=== PATIENT | male | born 1950 | race Caucasian/White ===

== ENCOUNTER 2016-12-17 09:15 | Inpatient (IN) | payer OTHER, MEDICARE, BC ==
[2016-12-17] MEDS ORDERED: Sodium Chloride 0.9% 10 ML Syringe FLUSH PRN (09:43)
[2016-12-17 10:16] LABS: CHLORIDE,CL 103 mEq/L (98-106); SODIUM,NA 142 mEq/L (136-145)
[2016-12-17] MEDS ORDERED: Acetaminophen 650 MG Supp ONE (10:20)
[2016-12-17] MEDS ORDERED: Temazepam 15 MG Cap PO PRN (11:24)
[2016-12-17] MEDS ORDERED: Lactated Ringers 1,000 ML IV SCH ×2 (11:30)
[2016-12-17] MEDS: Levofloxacin/Dextrose 5%-Water 500 MG in Premix Bag 1 BAG IV SCH (12:09)
--- NOTE | 2016-12-17 12:13 | EDM.PDOC ---
ED HISTORY OF PRESENT ILLNESS - General Chief Complaint: Respiratory Problem Stated Complaint: SENIOR CARE POSSIBLE PNEUMONIA Time Seen by Provider: 12/17/16 09:20 Source of Information: Reports: alf records History Limitations: Reports: Altered mental status, Physical impairment - History of Present Illness INITIAL COMMENTS - FREE TEXT/NARRATIVE: Danny is a 66 yo male who is brought into the ER via [facility] from the [facility] [place] [place]. Danny has been running a fever and having difficulty breathing. Nursing staff state he had rhonci in his lungs and O2 saturation of 85% Resident's family members recently switched his code level to a level one and want him evaluated for pneumonia. Patient is a quadriplegic and unable to communicate. - Related Data Allergies/ADRs: Allergies Allergy/AdvReac Type Severity Reaction Status Date / Time No Known Allergies Allergy Verified 12/17/16 11:03 Home Meds: Home Meds Acetaminophen 650 mg PO BID 12/17/16 [History] Amino Ac/Protein Hydr/Whey Pro [Liquacel Liquid Protein Packet] 1 packet PO DAILY 12/17/16 [History] Baclofen 15 mg PO TID 12/17/16 [History] Bisacodyl [Dulcolax] 5 mg PO DAILY PRN 12/17/16 [History] Bisacodyl [Dulcolax] 10 mg RECTAL DAILY PRN 12/17/16 [History] Calcium Carbonate/Vitamin D3 [Caltrate 600 Plus D3 Tablet] 1 each PO DAILY 12/17 [History] Diazepam [Valium] 2 mg PO TID 12/17/16 [History] Diazepam [Valium] 10 mg PO BEDTIME 12/17/16 [History] Furosemide [Lasix] 20 mg PO DAILY 12/17/16 [History] Levothyroxine [Synthroid] 50 mcg PO DAILY 12/17/16 [History] Loratadine 10 mg PO BEDTIME 12/17/16 [History] Magnesium 250 mg PO DAILY 12/17/16 [History] Mineral Oil/Petrolatum,White [Lubrifresh Pm Eye Ointment] 1 applic EYEBOTH DAILY 12/17/16 [History] Multivitamin [Daily Sophia] 1 each PO DAILY 12/17/16 [History] Sennosides/Docusate Sodium [Senna-Docusate Sodium] 1 each PO DAILY 12/17/16 [ History] Past Medical History Other HEENT History: eye senstivity. Other Gastrointestinal History: abdomen distended and tympanic. Other Genitourinary History: Patient incontinent of urine. Other Musculoskeletal History: Patient is quadraplegic. Social & Family History - Tobacco Use Smoking Status *Q: Never Smoker ED ROS GENERAL - Review of Systems Review Of Systems: Unable To Obtain ED EXAM, GENERAL - Physical Exam Exam: See Below Exam Limited By: Physical impairment General Appearance: alert, moderate distress Nose: normal inspection, normal mucosa, no blood Throat/Mouth: Normal inspection, Normal lips, Normal oropharynx, No airway compromise Head: atraumatic, normocephalic Neck: normal inspection, supple, non-tender Respiratory/Chest: no respiratory distress, no accessory muscle use, decreased breath sounds, rhonchi Cardiovascular: regular rate, rhythm, no murmur GI/Abdominal: normal bowel sounds, no abnormal bruit, no mass, distended Extremities: no pedal edema, normal capillary refill Psychiatric: normal affect, normal mood Skin Exam: Normal color, No rash, Increased warmth Course - Vital Signs Last Recorded V/S: Last Vital Signs Temp 98.2 F 12/17/16 11:15 Pulse 90 12/17/16 11:15 Resp 18 12/17/16 11:15 BP 120/94 H 12/17/16 11:15 Pulse Ox 96 12/17/16 11:15 - Orders/Labs/Meds Orders: Active Orders 24 hr Category Date Time Status Patient Status [ADT] Routine ADT 12/17/16 11:24 Active Cardiac Monitoring [RC] CONTINUOUS Care 12/17/16 11:24 Active Oxygen Therapy [RC] PRN Care 12/17/16 11:24 Active VTE/DVT Education [RC] PER UNIT ROUTINE Care 12/17/16 11:24 Active Vital Signs [RC] Q4H Care 12/17/16 11:24 Active Respiratory Care Assess and Treatment [CONS] Routine Cons 12/17/16 11:24 Active Full Liquid Diet [DIET] Diet 12/17/16 Lunch Active CXR [Chest 1V Frontal] [CR] Stat Exams 12/17/16 09:42 Taken BASIC METABOLIC PANEL,BMP [CHEM] AM Lab 12/18/16 05:11 Ordered BASIC METABOLIC PANEL,BMP [CHEM] AM Lab 12/19/16 05:11 Ordered BASIC METABOLIC PANEL,BMP [CHEM] AM Lab 12/20/16 05:11 Ordered C-REACTIVE PROTEIN [CHEM] AM Lab 12/18/16 05:11 Ordered C-REACTIVE PROTEIN [CHEM] AM Lab 12/19/16 05:11 Ordered C-REACTIVE PROTEIN [CHEM] AM Lab 12/20/16 05:11 Ordered CBC WITH AUTO DIFF [HEME] AM Lab 12/18/16 05:11 Ordered CBC WITH AUTO DIFF [HEME] AM Lab 12/19/16 05:11 Ordered CBC WITH AUTO DIFF [HEME] AM Lab 12/20/16 05:11 Ordered CULTURE BLOOD [BC] Stat Lab 12/17/16 09:45 Received CULTURE BLOOD [BC] Stat Lab 12/17/16 09:50 Received CULTURE SPUTUM + SMEAR [RM] Stat Lab 12/17/16 09:39 Uncollected Acetaminophen [Tylenol] Med 12/17/16 09:45 Active 650 mg RECTAL Q4H PRN Enoxaparin [Lovenox] Med 12/17/16 08:00 Active 40 mg SUBCUT Q24H Levofloxacin/Dextrose 5%-Water [Levaquin in D5W 500 MG/ Med 12/17/16 08:00 Active 100 ML] 500 mg Premix Bag 1 bag IV Q24H Sodium Chloride 0.9% [Saline Flush] Med 12/17/16 09:43 Active 10 ml FLUSH ASDIRECTED PRN Temazepam [Restoril] Med 12/17/16 11:24 Active 15 mg PO BEDTIME PRN methylPREDNISolone Sod Succ [Solu-MEDROL] Med 12/17/16 08:00 Active 62.5 mg IVPUSH Q12H Blood Culture x2 Reflex Set [OM.PC] Stat Oth 12/17/16 09:41 Ordered Saline Lock Insert [OM.PC] Routine Oth 12/17/16 09:43 Ordered Resuscitation Status Routine Resus Stat 12/17/16 10:45 Ordered Medication Orders Acetaminophen (Tylenol) 650 mg RECTAL Q4H PRN PRN Reason: Fever Enoxaparin Sodium (Lovenox) 40 mg SUBCUT Q24H THAI Levofloxacin/Dextrose 500 mg/ (Premix) 100 mls @ 100 mls/hr IV Q24H THAI Potassium Chloride 40 meq/ (Premix) 100 mls @ 12.5 mls/hr IV ASDIRECTED THAI Lactated Ringer's (Ringers, Lactated) 1,000 mls @ 125 mls/hr IV ASDIRECTED THAI Methylprednisolone Sodium Succinate (Solu-Medrol) 62.5 mg IVPUSH Q12H THAI Sodium Chloride (Saline Flush) 10 ml FLUSH ASDIRECTED PRN PRN Reason: Keep Vein Open Temazepam (Restoril) 15 mg PO BEDTIME PRN PRN Reason: Sleep Labs: Laboratory Tests 12/17/16 12/17/16 Range/Units 09:45 09:45 WBC 19.2 H (5.0-10.0) 10^3/uL RBC 5.06 (4.50-6.00) 10^6/uL Hgb 15.8 (14.0-18.0) g/dL Hct 47.5 (40.0-54.0) % MCV 93.9 (82.0-94.0) fL MCH 31.2 (27.0-32.0) pg MCHC 33.3 (33.0-38.0) g/dL RDW Coeff of Constantino 13.5 (11.0-15.0) % Plt Count 303 (150-400) 10^3/uL Neut % (Auto) 86.5 H (35-85) % Lymph % (Auto) 6.0 L (10-55) % Jenkins % (Auto) 7.1 (0-16) % Eos % (Auto) 0.3 (0-5) % Baso % (Auto) 0.1 (0-3) % Neut # 16.63 H (1.80-7.00) 10^3/uL Lymph # 1.15 (1.00-4.80) 10^3/uL Jenkins # 1.36 H (0.00-0.80) 10^3/uL Eos # 0.05 (0.00-0.45) 10^3/uL Baso # 0.01 10^3/uL Sodium 142 (136-145) mEq/L Potassium 2.7 L* D (3.5-5.0) mEq/L Chloride 103 (98-106) mEq/L Carbon Dioxide 28 (21-32) mmol/L BUN 15 (7-18) mg/dL Creatinine 0.5 L (0.7-1.3) mg/dL Est Cr Clr Drug Dosing TNP Estimated GFR (MDRD) > 60 (>=60) mL/min Glucose 126 H D (75-99) mg/dL Calcium 8.4 (8.4-10.1) mg/dL Total Bilirubin 0.8 (0.0-1.0) mg/dL AST 11 L (15-37) U/L ALT 19 (12-78) U/L Alkaline Phosphatase 92 (46-116) U/L C-Reactive Protein 2.9 H (0.2-0.8) mg/dL Total Protein 7.7 (6.4-8.2) g/dL Albumin 3.7 (3.4-5.0) g/dL TSH, Ultra Sensitive 1.58 (0.36-5.60) uIU/mL Meds: Medications Generic Name Dose Route Start Last Admin Trade Name Freq PRN Reason Stop Dose Admin Acetaminophen 650 mg 12/17/16 09:45 Tylenol RECTAL Q4H PRN Fever Enoxaparin Sodium 40 mg 12/17/16 08:00 Lovenox SUBCUT Q24H THAI Levofloxacin/Dextrose 500 mg/ 100 mls @ 100 mls/hr 12/17/16 08:00 Premix IV Q24H THAI Potassium Chloride 40 meq/ 100 mls @ 12.5 mls/hr 12/17/16 11:30 Premix IV ASDIRECTED THAI Lactated Ringer's 1,000 mls @ 125 mls/hr 12/17/16 11:30 Ringers, Lactated IV ASDIRECTED THAI Methylprednisolone Sodium Succinate 62.5 mg 12/17/16 08:00 Solu-Medrol IVPUSH Q12H THAI Sodium Chloride 10 ml 12/17/16 09:43 Saline Flush FLUSH ASDIRECTED PRN Keep Vein Open Temazepam 15 mg 12/17/16 11:24 Restoril PO BEDTIME PRN Sleep Discontinued Medications Generic Name Dose Route Start Last Admin Trade Name Freq PRN Reason Stop Dose Admin Acetaminophen Confirm 12/17/16 10:20 Tylenol Administered 12/17/16 10:21 Dose 650 mg .ROUTE .STK-MED ONE Departure - Departure Time of Disposition: 10:15 Disposition: Admitted As Inpatient 66 Condition: undetermined Clinical Impression: Hypokalemia Pneumonia Qualifiers: Pneumonia type: due to unspecified organism Laterality: bilateral Lung location : unspecified part of lung Qualified Code(s): J18.9 - Pneumonia, unspecified organism - Problem List & Annotations (1) Pneumonia SNOMED Code(s): 168477526 Code(s): J18.9 - PNEUMONIA, UNSPECIFIED ORGANISM Status: Acute Current Visit: Yes Qualifiers: Pneumonia type: due to unspecified organism Laterality: bilateral Lung location: unspecified part of lung Qualified Code(s): J18.9 - Pneumonia, unspecified organism (2) Hypokalemia SNOMED Code(s): 74350071 Code(s): E87.6 - HYPOKALEMIA Status: Acute Current Visit: Yes - Problem List Review Problem List Initiated/Reviewed/Updated: Yes - My Orders Last 24 Hours: My Active Orders 12/17/16 08:00 Enoxaparin [Lovenox] 40 mg SUBCUT Q24H Levofloxacin/Dextrose 5%-Water [Levaquin in D5W 500 MG/100 ML] 500 mg Premix Bag 1 bag IV Q24H methylPREDNISolone Sod Succ [Solu-MEDROL] 62.5 mg IVPUSH Q12H 12/17/16 09:39 CULTURE SPUTUM + SMEAR [RM] Stat 12/17/16 09:41 Blood Culture x2 Reflex Set [OM.PC] Stat 12/17/16 09:42 CXR [Chest 1V Frontal] [CR] Stat 12/17/16 09:43 Sodium Chloride 0.9% [Saline Flush] 10 ml FLUSH ASDIRECTED PRN Saline Lock Insert [OM.PC] Routine 12/17/16 09:45 CULTURE BLOOD [BC] Stat Acetaminophen [Tylenol] 650 mg RECTAL Q4H PRN 12/17/16 09:50 CULTURE BLOOD [BC] Stat 12/17/16 10:45 Resuscitation Status Routine 12/17/16 11:24 Patient Status [ADT] Routine Cardiac Monitoring [RC] CONTINUOUS Oxygen Therapy [RC] PRN VTE/DVT Education [RC] PER UNIT ROUTINE Vital Signs [RC] Q4H Respiratory Care Assess and Treatment [CONS] Routine Temazepam [Restoril] 15 mg PO BEDTIME PRN 12/17/16 Lunch Full Liquid Diet [DIET] 12/18/16 05:11 BASIC METABOLIC PANEL,BMP [CHEM] AM C-REACTIVE PROTEIN [CHEM] AM CBC WITH AUTO DIFF [HEME] AM 12/19/16 05:11 BASIC METABOLIC PANEL,BMP [CHEM] AM C-REACTIVE PROTEIN [CHEM] AM CBC WITH AUTO DIFF [HEME] AM 12/20/16 05:11 BASIC METABOLIC PANEL,BMP [CHEM] AM C-REACTIVE PROTEIN [CHEM] AM CBC WITH AUTO DIFF [HEME] AM - Assessment/Plan Admission H&P: Please use this note as an admission H&P Last 24 Hours: My Active Orders 12/17/16 08:00 Enoxaparin [Lovenox] 40 mg SUBCUT Q24H Levofloxacin/Dextrose 5%-Water [Levaquin in D5W 500 MG/100 ML] 500 mg Premix Bag 1 bag IV Q24H methylPREDNISolone Sod Succ [Solu-MEDROL] 62.5 mg IVPUSH Q12H 12/17/16 09:39 CULTURE SPUTUM + SMEAR [RM] Stat 12/17/16 09:41 Blood Culture x2 Reflex Set [OM.PC] Stat 12/17/16 09:42 CXR [Chest 1V Frontal] [CR] Stat 12/17/16 09:43 Sodium Chloride 0.9% [Saline Flush] 10 ml FLUSH ASDIRECTED PRN Saline Lock Insert [OM.PC] Routine 12/17/16 09:45 CULTURE BLOOD [BC] Stat Acetaminophen [Tylenol] 650 mg RECTAL Q4H PRN 12/17/16 09:50 CULTURE BLOOD [BC] Stat 12/17/16 10:45 Resuscitation Status Routine 12/17/16 11:24 Patient Status [ADT] Routine Cardiac Monitoring [RC] CONTINUOUS Oxygen Therapy [RC] PRN VTE/DVT Education [RC] PER UNIT ROUTINE Vital Signs [RC] Q4H Respiratory Care Assess and Treatment [CONS] Routine Temazepam [Restoril] 15 mg PO BEDTIME PRN 12/17/16 Lunch Full Liquid Diet [DIET] 12/18/16 05:11 BASIC METABOLIC PANEL,BMP [CHEM] AM C-REACTIVE PROTEIN [CHEM] AM CBC WITH AUTO DIFF [HEME] AM 12/19/16 05:11 BASIC METABOLIC PANEL,BMP [CHEM] AM C-REACTIVE PROTEIN [CHEM] AM CBC WITH AUTO DIFF [HEME] AM 12/20/16 05:11 BASIC METABOLIC PANEL,BMP [CHEM] AM C-REACTIVE PROTEIN [CHEM] AM CBC WITH AUTO DIFF [HEME] AM Plan: Will admit to Dr. Mishra's services under acute care. Dr. Mishra consulted and agreed with admission. Will start IV antibiotics at this time. Will supplement potassium as well d/t hypokalemia. Telemetry placed secondary to electrolyte imbalance.
[2016-12-17] MEDS: Enoxaparin 40 MG/0.4 ML Syringe SUBCUT SCH (12:26)
[2016-12-17] MEDS: methylPREDNISolone Sodium Succinate 125 MG/2 ML SDV IVPUSH SCH ×2 (12:28→20:14)
[2016-12-17] MEDS: Potassium Chloride 40 MEQ in Premix Bag 1 BAG IV SCH ×2 (14:38→20:22)
[2016-12-17] MEDS: Lactated Ringers 1,000 ML IV SCH ×2 (14:40→20:22)
[2016-12-17] MEDS: Acetaminophen 650 MG Supp RECTAL PRN (17:03)
[2016-12-17] MEDS ORDERED: Bisacodyl 5 MG Tab PO PRN (18:04)
[2016-12-17] MEDS ORDERED: Bisacodyl 10 MG Supp RECTAL PRN (18:04)
[2016-12-17] MEDS: Diazepam 5 MG Tab PO SCH ×2 (20:13→20:14)
[2016-12-17] MEDS: Baclofen 10 MG Tab PO SCH (20:13)
[2016-12-17] MEDS: Acetaminophen 325 MG Tab PO SCH (20:13)
[2016-12-17] MEDS: Albuterol/Ipratropium 3.0-0.5 MG/3 ML Neb Soln NEB SCH (20:14)
[2016-12-18] MEDS: Lactated Ringers 1,000 ML IV SCH ×3 (04:56→20:00)
[2016-12-18] MEDS: Potassium Chloride 40 MEQ in Premix Bag 1 BAG IV SCH (04:57)
[2016-12-18] MEDS: Baclofen 10 MG Tab PO SCH ×3 (07:43→20:00)
[2016-12-18] MEDS: Multivitamin Tab PO SCH (07:45)
[2016-12-18] MEDS: Diazepam 5 MG Tab PO SCH ×4 (07:45→20:05)
[2016-12-18] MEDS: Furosemide 20 MG Tab PO SCH (07:46)
[2016-12-18] MEDS: Levothyroxine 50 MCG Tab PO SCH (07:46)
[2016-12-18] MEDS: Acetaminophen 325 MG Tab PO SCH ×2 (07:46→20:00)
[2016-12-18] MEDS: Enoxaparin 40 MG/0.4 ML Syringe SUBCUT SCH (07:47)
[2016-12-18] MEDS: methylPREDNISolone Sodium Succinate 125 MG/2 ML SDV IVPUSH SCH ×2 (07:47→19:59)
[2016-12-18] MEDS: AMINO AC PO SCH (07:49)
[2016-12-18] MEDS: MINERAL OIL EYEBOTH SCH (07:49)
[2016-12-18] MEDS: PETROLATUM WHITE EYEBOTH SCH (07:49)
[2016-12-18] MEDS: Levofloxacin/Dextrose 5%-Water 500 MG in Premix Bag 1 BAG IV SCH (07:49)
[2016-12-18] MEDS: PROTEIN HYDR PO SCH (07:49)
[2016-12-18] MEDS: [UNRECOGNIZED DRUG - OTHER] PO SCH (07:49)
[2016-12-18] MEDS: WHEY PRO PO SCH (07:49)
[2016-12-18] MEDS: [UNRECOGNIZED DRUG - OTHER] EYEBOTH SCH (07:49)
[2016-12-18] MEDS: Albuterol/Ipratropium 3.0-0.5 MG/3 ML Neb Soln NEB SCH ×4 (08:00→20:02)
[2016-12-18 08:44] LABS: CHLORIDE,CL 105 mEq/L (98-106); SODIUM,NA 142 mEq/L (136-145)
[2016-12-19] MEDS: Lactated Ringers 1,000 ML IV SCH ×2 (04:17→20:04)
[2016-12-19 08:18] LABS: CHLORIDE,CL 107 mEq/L (98-106); SODIUM,NA 143 mEq/L (136-145)
[2016-12-19] MEDS: Enoxaparin 40 MG/0.4 ML Syringe SUBCUT SCH (08:53)
[2016-12-19] MEDS: Levothyroxine 50 MCG Tab PO SCH (08:53)
[2016-12-19] MEDS: Baclofen 10 MG Tab PO SCH ×3 (08:54→22:06)
[2016-12-19] MEDS: Multivitamin Tab PO SCH (08:55)
[2016-12-19] MEDS: Diazepam 5 MG Tab PO SCH ×4 (08:55→22:07)
[2016-12-19] MEDS: Furosemide 20 MG Tab PO SCH (08:55)
[2016-12-19] MEDS: methylPREDNISolone Sodium Succinate 125 MG/2 ML SDV IVPUSH SCH ×2 (08:56→20:04)
[2016-12-19] MEDS: [UNRECOGNIZED DRUG - OTHER] EYEBOTH SCH (08:56)
[2016-12-19] MEDS: Acetaminophen 325 MG Tab PO SCH ×2 (08:56→22:06)
[2016-12-19] MEDS: PETROLATUM WHITE EYEBOTH SCH (08:56)
[2016-12-19] MEDS: MINERAL OIL EYEBOTH SCH (08:56)
[2016-12-19] MEDS: Levofloxacin/Dextrose 5%-Water 500 MG in Premix Bag 1 BAG IV SCH (08:57)
[2016-12-19] MEDS: Albuterol/Ipratropium 3.0-0.5 MG/3 ML Neb Soln NEB SCH ×4 (08:57→22:28)
[2016-12-19] MEDS: [UNRECOGNIZED DRUG - OTHER] PO SCH (08:57)
[2016-12-19] MEDS: PROTEIN HYDR PO SCH (08:57)
[2016-12-19] MEDS: AMINO AC PO SCH (08:57)
[2016-12-19] MEDS: WHEY PRO PO SCH (08:57)
--- NOTE | 2016-12-19 16:17 | PCM.PN ---
- General Info Date of Service: 12/19/16 Admission Dx/Problem (Free Text): Pneumonia Functional Status: Reports: tolerating diet, other (catheter intact, draining clear urine) - Review of Systems General: Reports: fever, other (unobtainable, concerns reported by nurse) HEENT: Reports: sinus congestion Pulmonary: Reports: cough. Denies: shortness of breath, wheezing Cardiovascular: Denies: edema Gastrointestinal: Reports: Other (abdominal distention) Genitourinary: Reports: other (clear yellow urine) - Patient Data Vitals - most recent: Last Vital Signs Temp 98.5 F 12/19/16 16:00 Pulse 101 H 12/19/16 16:00 Resp 20 12/19/16 16:00 BP 133/67 12/19/16 16:00 Pulse Ox 94 L 12/19/16 16:00 Weight - most recent: 154 lb I&O - last 24 hours: Intake & Output 12/19/16 12/19/16 12/19/16 06:59 14:59 22:59 Intake Total 1000 200 Output Total 200 Balance 800 200 Lab Results last 24 hrs: Laboratory Results - last 24 hr 12/19/16 12/19/16 Range/Units 05:11 05:11 WBC 11.0 H (5.0-10.0) 10^3/uL RBC 4.46 L (4.50-6.00) 10^6/uL Hgb 14.0 (14.0-18.0) g/dL Hct 42.7 (40.0-54.0) % MCV 95.7 H (82.0-94.0) fL MCH 31.4 (27.0-32.0) pg MCHC 32.8 L (33.0-38.0) g/dL RDW Coeff of Constantino 13.4 (11.0-15.0) % Plt Count 278 (150-400) 10^3/uL Neut % (Auto) 82.6 (35-85) % Lymph % (Auto) 7.5 L (10-55) % Dickenson % (Auto) 9.9 (0-16) % Eos % (Auto) 0 (0-5) % Baso % (Auto) 0 (0-3) % Neut # 9.10 H (1.80-7.00) 10^3/uL Lymph # 0.83 L (1.00-4.80) 10^3/uL Dickenson # 1.09 H (0.00-0.80) 10^3/uL Eos # 0.00 (0.00-0.45) 10^3/uL Baso # 0.00 10^3/uL Sodium 143 (136-145) mEq/L Potassium 3.3 L (3.5-5.0) mEq/L Chloride 107 H (98-106) mEq/L Carbon Dioxide 28 (21-32) mmol/L BUN 17 (7-18) mg/dL Creatinine 0.5 L (0.7-1.3) mg/dL Est Cr Clr Drug Dosing 143.59 mL/min Estimated GFR (MDRD) > 60 (>=60) mL/min Glucose 142 H (75-99) mg/dL Calcium 8.6 (8.4-10.1) mg/dL C-Reactive Protein 1.0 H (0.2-0.8) mg/dL [facility] Results last 24 hrs: Microbiology 12/17/16 11:26 Urine Culture - Final Urine, Catheterized NO GROWTH AFTER 2 DAYS Med Orders - Current: Current Medications Acetaminophen (Tylenol) 650 mg RECTAL Q4H PRN PRN Reason: Fever Last Admin: 12/17/16 17:03 Dose: 650 mg Acetaminophen (Tylenol) 650 mg PO BID [facility] Last Admin: 12/19/16 08:56 Dose: 650 mg Albuterol/Ipratropium (Duoneb 3.0-0.5 Mg/3 Ml) 3 ml NEB QIDRT [facility] Last Admin: 12/19/16 15:11 Dose: 3 ml Baclofen (Lioresal) 15 mg PO TID [facility] Last Admin: 12/19/16 08:54 Dose: 15 mg Bisacodyl (Dulcolax) 5 mg PO DAILY PRN PRN Reason: Constipation Bisacodyl (Dulcolax) 10 mg RECTAL DAILY PRN PRN Reason: Constipation Diazepam (Valium.) 2.5 mg PO TID [facility] Last Admin: 12/19/16 08:55 Dose: 2.5 mg Diazepam (Valium.) 10 mg PO BEDTIME [facility] Last Admin: 12/18/16 20:00 Dose: 10 mg Enoxaparin Sodium (Lovenox) 40 mg SUBCUT Q24H [facility] Last Admin: 12/19/16 08:53 Dose: 40 mg Furosemide (Lasix) 20 mg PO DAILY [facility] Last Admin: 12/19/16 08:55 Dose: 20 mg Levofloxacin/Dextrose 500 mg/ (Premix) 100 mls @ 100 mls/hr IV Q24H [facility] Last Admin: 12/19/16 08:57 Dose: 100 mls/hr Lactated Ringer's (Ringers, Lactated) 1,000 mls @ 50 mls/hr IV ASDIRECTED [facility] Last Admin: 12/19/16 04:17 Dose: 125 mls/hr Levothyroxine Sodium (Synthroid) 50 mcg PO DAILY [facility] Last Admin: 12/19/16 08:53 Dose: 50 mcg Magnesium Oxide (Magnesium Oxide) 250 mg PO DAILY [facility] Last Admin: 12/19/16 08:55 Dose: 250 mg Methylprednisolone Sodium Succinate (Solu-Medrol) 62.5 mg IVPUSH Q12H [facility] Last Admin: 12/19/16 08:56 Dose: 62.5 mg Multivitamins/Minerals/Vitamin C (Tab-A-Sophia) 1 tab PO DAILY [facility] Last Admin: 12/19/16 08:55 Dose: 1 tab Non-Formulary Medication (Amino Ac/Protein Hydr/Whey Pro [Liquacel Liquid Protein Packet]) 1 packet PO DAILY [facility] Last Admin: 12/19/16 08:57 Dose: Not Given Non-Formulary Medication (Mineral Oil/Petrolatum,White [Lubrifresh Pm Eye Ointment]) 1 applic EYEBOTH DAILY [facility] Last Admin: 12/19/16 08:56 Dose: 1 applic Potassium Chloride (Potassium Chloride Solution) 20 meq PO BIDMEALS [facility] Senna/Docusate Sodium (Senna Plus) 1 tab PO DAILY [facility] Last Admin: 12/19/16 08:54 Dose: 1 tab Sodium Chloride (Saline Flush) 10 ml FLUSH ASDIRECTED PRN PRN Reason: Keep Vein Open Temazepam (Restoril) 15 mg PO BEDTIME PRN PRN Reason: Sleep Discontinued Medications Acetaminophen (Tylenol) Confirm Administered Dose 650 mg .ROUTE .STK-MED ONE Stop: 12/17/16 10:21 Last Admin: 12/17/16 12:31 Dose: Not Given Potassium Chloride 40 meq/ (Premix) 100 mls @ 12.5 mls/hr IV ASDIRECTED THAI Last Admin: 12/18/16 04:57 Dose: 12.5 mls/hr - Exam Quality Assessment: urine catheter General: alert HEENT: Mucous membr. moist/pink Neck: supple Lungs: Clear to auscultation, Normal respiratory effort Cardiovascular: regular rate, regular rhythm Abdomen: distension (abdomen is taut, firm to palpation), abnormal bowel sounds Extremities: no edema, other (contractures noted, chronic) Skin: warm, dry - Problem List & Annotations (1) Ileus SNOMED Code(s): 355312048 Code(s): K56.7 - ILEUS, UNSPECIFIED Status: Acute Priority: High Current Visit: Yes (2) Pneumonia SNOMED Code(s): 787590891 Code(s): J18.9 - PNEUMONIA, UNSPECIFIED ORGANISM Status: Acute Current Visit: Yes Qualifiers: Pneumonia type: due to unspecified organism Laterality: bilateral Lung location: unspecified part of lung Qualified Code(s): J18.9 - Pneumonia, unspecified organism - Problem List Review Problem List Initiated/Reviewed/Updated: Yes - My Orders Last 24 Hours: My Active Orders 12/19/16 12:46 Abdomen 2V AP Flat Upright [CR] Routine 12/19/16 14:10 NG [Gastrointestinal Tube Mgmt] [RC] ASDIRECTED NG [Nasogastric Orogastric Tube Insertion] [OM.PC] Routine 12/19/16 17:30 Potassium Chloride [Potassium Chloride Solution] 20 meq PO BIDMEALS - Assessment Assessment:: Pneumonia Ileus - Plan Plan:: Nurse reports significant abdominal distention. Has had a small loose stool today. Was turned on left side earlier to see if it would help alleviate the gas pressure. Has been eating well with assistance. Pneumonia has been improving. IV fluid intake, oral intake greater than output noted in cath. Lung sounds improved. Chest xray yesterday improved Xray done of abdomen. Has significant ileus. Did insert an NG to see if we could decompress his abdomen some. Will give thickened sips of liquids only. May need to consider suppository if no relief.
[2016-12-19] MEDS: Potassium Chloride 10% 20 MEQ/15 ML Soln 15 ML UD Cup PO SCH (18:05)
[2016-12-19] MEDS: Acetaminophen 650 MG Supp RECTAL PRN (20:00)
[2016-12-20] MEDS: Lactated Ringers 1,000 ML IV SCH (03:26)
[2016-12-20] MEDS: Acetaminophen 650 MG Supp RECTAL PRN (06:03)
[2016-12-20] MEDS: Levofloxacin/Dextrose 5%-Water 500 MG in Premix Bag 1 BAG IV SCH (07:44)
[2016-12-20] MEDS: Potassium Chloride 10% 20 MEQ/15 ML Soln 15 ML UD Cup PO SCH ×2 (07:44→18:00)
[2016-12-20] MEDS: methylPREDNISolone Sodium Succinate 125 MG/2 ML SDV IVPUSH SCH ×2 (07:44→20:15)
[2016-12-20] MEDS: Diazepam 5 MG Tab PO SCH ×4 (07:47→20:16)
[2016-12-20] MEDS: Furosemide 20 MG Tab PO SCH (07:47)
[2016-12-20] MEDS: Enoxaparin 40 MG/0.4 ML Syringe SUBCUT SCH (07:47)
[2016-12-20] MEDS: Baclofen 10 MG Tab PO SCH ×3 (07:48→20:16)
[2016-12-20] MEDS: Multivitamin Tab PO SCH (07:48)
[2016-12-20] MEDS: [UNRECOGNIZED DRUG - OTHER] PO SCH (07:49)
[2016-12-20] MEDS: Levothyroxine 50 MCG Tab PO SCH (07:49)
[2016-12-20] MEDS: PROTEIN HYDR PO SCH (07:49)
[2016-12-20] MEDS: AMINO AC PO SCH (07:49)
[2016-12-20] MEDS: WHEY PRO PO SCH (07:49)
[2016-12-20] MEDS: Acetaminophen 325 MG Tab PO SCH ×2 (07:50→20:16)
[2016-12-20 08:03] LABS: CHLORIDE,CL 106 mEq/L (98-106); SODIUM,NA 146 mEq/L (136-145)
--- NOTE | 2016-12-20 08:08 | PN ---
DATE: 12/18/2016 S: Danny Serrato is in with a bronchiolitis, fever, and chills. I reviewed his chest x-ray this morning. He does have some atelectasis. He has a lot of air in his bowel. O: NECK: Supple. CHEST: Little wheezing. CARDIAC: Sounds are good. ABDOMEN: There are some tinkly bowel sounds present, a little bit distended, but he is stooling. ASSESSMENT: BRONCHIOLITIS, CLOSED HEAD INJURY. POTASSIUM IS NOW CORRECTED. SO, WE WILL CONTINUE PRESENT THERAPY. EMERSON/NIKA /[id number]
[2016-12-20] MEDS ORDERED: Iopamidol 612 MG/ML 100 ML Bottle IVPUSH ONE (08:35)
--- NOTE | 2016-12-20 08:53 | PN ---
DATE: 12/20/2016 S: This is a gentleman who came in with a bronchiolitis, now has what appears to be bowel obstruction and put in an NG suction over the weekend. O: NECK: Supple. CHEST: Okay. ABDOMEN: Distended. Bowel sounds were tinkly. Flat and upright shows dilated bowel. ASSESSMENT: BRONCHIOLITIS, PARTIAL BOWEL OBSTRUCTION. I WILL ORDER A CT OF HIS ABDOMEN AND PELVIS. THEY GOT HIM A CODE 1, TRYING TO DISCUSS THAT WITH HIS DAUGHTERS TODAY, I DO NOT BELIEVE HE SHOULD BE A CODE 1. WE WILL REPLACE HIS NG SUCTION. EMERSON/NIKA /[id number]
[2016-12-20] MEDS: Dextrose 5%-0.45% NaCl 1,000 ML IV SCH ×2 (09:03→19:59)
[2016-12-20] MEDS: Potassium Chloride 40 MEQ in Premix Bag 1 BAG IV SCH ×2 (09:04→18:56)
[2016-12-20] MEDS: PETROLATUM WHITE EYEBOTH SCH (09:06)
[2016-12-20] MEDS: MINERAL OIL EYEBOTH SCH (09:06)
[2016-12-20] MEDS: [UNRECOGNIZED DRUG - OTHER] EYEBOTH SCH (09:06)
[2016-12-20] MEDS: Albuterol/Ipratropium 3.0-0.5 MG/3 ML Neb Soln NEB SCH ×4 (09:18→20:15)
[2016-12-20] MEDS: D5 1/2 NS w/ 20 mEq/L KCl 1,000 ML IV SCH ×2 (10:14→19:53)
[2016-12-20] MEDS ORDERED: Iopamidol 755 Mg/ML 100 ML Bottle IVPUSH ONE (11:15)
[2016-12-21] MEDS: D5 1/2 NS w/ 20 mEq/L KCl 1,000 ML IV SCH (01:20)
[2016-12-21] MEDS: Potassium Chloride 40 MEQ in Premix Bag 1 BAG IV SCH (05:13)
[2016-12-21] MEDS: Dextrose 5%-0.45% NaCl 1,000 ML IV SCH (05:13)
[2016-12-21 08:29] LABS: CHLORIDE,CL 103 mEq/L (98-106); SODIUM,NA 142 mEq/L (136-145)
[2016-12-21] MEDS: Multivitamin Tab PO SCH (08:51)
[2016-12-21] MEDS: Potassium Chloride 10% 20 MEQ/15 ML Soln 15 ML UD Cup PO SCH (08:51)
[2016-12-21] MEDS: Levothyroxine 50 MCG Tab PO SCH (08:51)
[2016-12-21] MEDS: Diazepam 5 MG Tab PO SCH (08:52)
[2016-12-21] MEDS: Furosemide 20 MG Tab PO SCH (08:52)
[2016-12-21] MEDS: Baclofen 10 MG Tab PO SCH (08:52)
[2016-12-21] MEDS: Acetaminophen 325 MG Tab PO SCH (08:53)
[2016-12-21] MEDS: Levofloxacin/Dextrose 5%-Water 500 MG in Premix Bag 1 BAG IV SCH (08:54)
[2016-12-21] MEDS: methylPREDNISolone Sodium Succinate 125 MG/2 ML SDV IVPUSH SCH (08:57)
[2016-12-21] MEDS: Albuterol/Ipratropium 3.0-0.5 MG/3 ML Neb Soln NEB SCH ×2 (09:00→14:40)
[2016-12-21] MEDS: PETROLATUM WHITE EYEBOTH SCH (09:06)
[2016-12-21] MEDS: MINERAL OIL EYEBOTH SCH (09:06)
[2016-12-21] MEDS: Enoxaparin 40 MG/0.4 ML Syringe SUBCUT SCH (09:06)
[2016-12-21] MEDS: [UNRECOGNIZED DRUG - OTHER] EYEBOTH SCH (09:06)
--- NOTE | 2016-12-21 09:22 | PN ---
DATE: 12/21/2016 O: NECK: This morning neck was supple. CHEST: Clear. ABDOMEN: Less distended. Bowel sounds are good. He is stooling. CT yesterday showed a volvulus. I did give him a large enema, which I suspect probably corrected at and appears to be stable this morning. We will pull his NG tube, wait for his lab work this morning, and [facility]. EMERSON/NIKA /[id number]
[2016-12-21] MEDS: WHEY PRO PO SCH (14:13)
[2016-12-21] MEDS: [UNRECOGNIZED DRUG - OTHER] PO SCH (14:13)
[2016-12-21] MEDS: AMINO AC PO SCH (14:13)
[2016-12-21] MEDS: PROTEIN HYDR PO SCH (14:13)
[2016-12-21 14:20] VITALS: BP 147/71
--- NOTE | 2016-12-22 08:00 | DISCH ---
HOSPITAL COURSE: Danny Serrato came in with a bronchiolitis and developed appeared to be mild ileus. Over the weekend, he has put an NG tube down. I did do a CT of the abdomen, did show a volvulus, did a large enema. Yesterday, we read the volvulus. At the time of discharge, abdomen was not distended. Bowel sounds are normal. Neck was supple. Chest was clear. He was started on IV therapy while here. LABORATORY DATA: Labs in the hospital; multiple CBCs; white count 19.2 on admission, 11.8 prior to discharge. Potassium was 2.7, went 3.3, went back down to 2.7 from the NG suction we placed, now 3.3, creatinines were good. C- reactive proteins were 2.91 before discharge. Urinalysis other than mild dehydration was good. DISPOSITION: The patient now discharged back to the group home on home meds plus Micro-K 10 mEq. DISCHARGE DIAGNOSIS: 1. BRONCHIOLITIS. 2. VOLVULUS CAUSING A PARTIAL BOWEL OBSTRUCTION. 3. HYPOKALEMIA, CORRECTED. 4. CLOSED HEAD INJURY. 5. HYPOTHYROIDISM. EMERSON/NIKA /[id number]
== END 2016-12-21 15:15 | DRG 202 ==
LOC: CC.ED 09:15 → CC.MS 11:08 → UNDOADMIN 11:08 → CC.MS 11:24
PROVIDERS: ADMIT Physician Assistant Medical; ATTEND General Practice
DX: J21.9 Acute bronchiolitis, unspecified (principal); K56.2 Volvulus; K56.7 Ileus, unspecified; E87.6 Hypokalemia; E03.9 Hypothyroidism, unspecified; S09.90XA Unspecified injury of head, initial encounter
CPT/HCPCS: 36415; 51701; 51702; 71010; 74020; 74177; 80048; 80053; 81001; 83735; 84443; 85025; 86140; 87040; 87086; 87804; 94640; 94640-76; 94760; 99284; A9270-GY; J1650; J1956; J2930; J3480; J7042; J7120; Q9967

== ENCOUNTER 2016-12-28 04:49 | Emergency (ER) | payer MEDICARE, OTHER ==
[2016-12-28] MEDS ORDERED: Albuterol/Ipratropium 3.0-0.5 MG/3 ML Neb Soln NEB ONE ×3 (05:09→05:54)
--- NOTE | 2016-12-28 05:29 | EDM.PDOC ---
ED HISTORY OF PRESENT ILLNESS - General Chief Complaint: Respiratory Problem Stated Complaint: respiratory, fever Time Seen by Provider: 12/28/16 05:22 Source of Information: Reports: Patient History Limitations: Reports: Altered mental status (nonverbal; chronic. ) - History of Present Illness INITIAL COMMENTS - FREE TEXT/NARRATIVE: This patient is a 66 year old male. Patient arrived via EMS from custodial. Patient is contractured and nonverbal chronically. It is reported from the custodial that the patent this morning at 3am was in bed and coughing. They report the patient appeared to become short of breath and change color. They reported when they checked the patient oxygen saturation is was 84%. The report he was also febrile. The patient arrives here and is saturating 89%, has a wet sounding respiration that is heard, he is febrile. Patient is alert with eye opening. Symptom Onset Date: 12/28/16 Symptom Onset Time: 03:00 Timing/Duration: Reports: Hour(s): (2 /2) Severity: moderate Improves with: Reports: None Worsens with: Reports: None Associated Symptoms (General): Reports: cough, cough w sputum, fever/chills, shortness of breath. 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 - Related Data Allergies/ADRs: Allergies Allergy/AdvReac Type Severity Reaction Status Date / Time No Known Allergies Allergy Verified 12/17/16 11:03 Home Meds: Home Meds Acetaminophen 650 mg PO BID 12/17/16 [History] Amino Ac/Protein Hydr/Whey Pro [Liquacel Liquid Protein Packet] 1 packet PO DAILY 12/17/16 [History] Baclofen 15 mg PO TID 12/17/16 [History] Bisacodyl [Dulcolax] 5 mg PO DAILY PRN 12/17/16 [History] Bisacodyl [Dulcolax] 10 mg RECTAL DAILY PRN 12/17/16 [History] Calcium Carbonate/Vitamin D3 [Caltrate 600 Plus D3 Tablet] 1 each PO DAILY 12/17 [History] Diazepam [Valium] 2 mg PO TID 12/17/16 [History] Diazepam [Valium] 10 mg PO BEDTIME 12/17/16 [History] Furosemide [Lasix] 20 mg PO DAILY 12/17/16 [History] Levothyroxine [Synthroid] 50 mcg PO DAILY 12/17/16 [History] Loratadine 10 mg PO BEDTIME 12/17/16 [History] Magnesium 250 mg PO DAILY 12/17/16 [History] Mineral Oil/Petrolatum,White [Lubrifresh Pm Eye Ointment] 1 applic EYEBOTH DAILY 12/17/16 [History] Multivitamin [Daily Sophia] 1 each PO DAILY 12/17/16 [History] Sennosides/Docusate Sodium [Senna-Docusate Sodium] 1 each PO DAILY 12/17/16 [ History] Potassium Chloride 15 ml PO DAILY 12/28/16 [History] Past Medical History Other HEENT History: eye senstivity. Other Gastrointestinal History: abdomen distended and tympanic. Other Genitourinary History: Patient incontinent of urine. Other Musculoskeletal History: Patient is quadraplegic. Social & Family History - Tobacco Use Smoking Status *Q: Never Smoker ED ROS GENERAL - Review of Systems Review Of Systems: See Below Constitutional: Reports: fever HEENT: Reports: No symptoms Respiratory: Reports: shortness of breath, cough, sputum Cardiovascular: Reports: No symptoms Endocrine: Reports: no symptoms GI/Abdominal: Reports: No symptoms : Reports: no symptoms Musculoskeletal: Reports: no symptoms Skin: Reports: cyanosis ("bluish color" per custodial. ), change in color ( "bluish color" per custodial. ) Neurological: Reports: no symptoms Psychiatric: Reports: No symptoms Hematologic/Lymphatic: Reports: no symptoms Immunologic: Reports: no symptoms ED EXAM, GENERAL - Physical Exam Exam: See Below Exam Limited By: Altered mental status (contractured and nonverbal chronic.) General Appearance: alert, WD/WN, no apparent distress Eye Exam: bilateral eye: normal inspection Ears: normal external exam, normal canal, hearing grossly normal, normal TMs Ear Exam: bilateral ear: auricle normal, canal normal, TM normal Nose: normal inspection, normal mucosa, no blood Throat/Mouth: Normal inspection, Normal lips, Normal teeth, Normal gums, Normal oropharynx, No airway compromise Head: atraumatic, normocephalic Neck: normal inspection, supple, non-tender, full range of motion Respiratory/Chest: no respiratory distress, no accessory muscle use, chest non- tender, decreased breath sounds (mildly throughout), rales (moderate throughout) , other (Respiratorr rate 32. tachynpnea.). No: respiratory distress, accessory muscle use, retractions, splinting, prolonged expiration Cardiovascular: normal peripheral pulses, regular rate, rhythm, no edema, no gallop, no JVD, no murmur, no rub Peripheral Pulses: 2+: radial (L), radial (R), posterior tibial (L), posterior tibial (R), dorsalis pedis (L), dorsalis pedis (R) GI/Abdominal: soft, non tender Back Exam: normal inspection, full range of motion Extremities: normal inspection, non-tender, no pedal edema, normal capillary refill, limited range of motion, other (contractured. chronic. ). No: normal range of motion Neurological: alert, other (nonverbal) Psychiatric: normal affect, normal mood Skin Exam: Warm, Dry, Intact, Normal color, No rash Lymphatic: no adenopathy ED RESPIRATORY PROCEDURES - Endotracheal Intubation ET Intubation Indication: respiratory failure, airway protection Preparation: suction, balloon tested, BVM set up, difficult airway equip Airway assessment: profuse secretions, large tongue, other (previous trach) Pre-oxygenation: assisted with BVM, 100% FiO2 Anesthesia Meds: Etomidate (20mg), Rocuronium (109mg) Placement: orotracheal, cuffed, complicated placement Cords visualized: yes ETT size in mm: 7 Number of attempts: 2 Confirmed By: CO2 indicator, bilateral breath sounds, chest xray Tube Secured By: by RT Course - Vital Signs Last Recorded V/S: Last Vital Signs Temp 100.3 F 12/28/16 06:20 Pulse 130 H 12/28/16 06:20 Resp 32 H 12/28/16 06:20 BP 148/81 H 12/28/16 06:20 Pulse Ox 90 L 12/28/16 06:20 - Orders/Labs/Meds Orders: Active Orders 24 hr Category Date Time Status Ignacio Catheter Insertion [Insert Urinary Catheter] [OM. Care 12/28/16 07:15 Ordered PC] Q24H Ignacio Catheter Insertion [Insert Urinary Catheter] [OM. Care 12/28/16 07:15 Ordered PC] Q24H Oxygen Therapy, ED [RC] ASDIRECTED Care 12/28/16 04:49 Active RT Aerosol Therapy [RC] ASDIRECTED Care 12/28/16 05:10 Active RT Aerosol Therapy [RC] ASDIRECTED Care 12/28/16 05:54 Active RT Aerosol Therapy [RC] ASDIRECTED Care 12/28/16 05:54 Active Urinary Catheter Assessment [RC] ASDIRECTED Care 12/28/16 07:13 Active Urinary Catheter Assessment [RC] ASDIRECTED Care 12/28/16 07:15 Active Chest 1V Frontal [CR] Stat Exams 12/28/16 05:22 Taken Chest 1V Frontal [CR] Stat Exams 12/28/16 07:16 Taken CULTURE BLOOD [BC] Stat Lab 12/28/16 05:30 Received CULTURE BLOOD [BC] Stat Lab 12/28/16 05:30 Received Piperacillin/Tazobactam [Zosyn] 4.5 gm Med 12/28/16 07:15 Active Sodium Chloride 0.9% [Normal Saline] 100 ml IV Q6H Vancomycin 1 gm Med 12/28/16 07:12 Active Sodium Chloride 0.9% [Normal Saline] 250 ml IV ONETIME Blood Culture x2 Reflex Set [OM.PC] Stat Oth 12/28/16 05:22 Ordered Medication Orders Piperacillin Sod/Tazobactam (Sod 4.5 gm/ Sodium Chloride) 100 mls @ 200 mls/hr IV Q6H THAI Last Admin: 12/28/16 07:28 Dose: 200 mls/hr Vancomycin HCl 1 gm/ Sodium (Chloride) 250 mls @ 167 mls/hr IV ONETIME ONE Stop: 12/28/16 08:41 Last Admin: 12/28/16 07:29 Dose: 167 mls/hr Labs: Laboratory Tests 12/28/16 12/28/16 12/28/16 Range/Units 05:30 05:30 05:30 WBC 22.2 H* (5.0-10.0) 10^3/uL RBC 5.03 (4.50-6.00) 10^6/uL Hgb 15.7 (14.0-18.0) g/dL Hct 48.8 (40.0-54.0) % MCV 97.0 H (82.0-94.0) fL MCH 31.2 (27.0-32.0) pg MCHC 32.2 L (33.0-38.0) g/dL RDW Coeff of Constantino 13.6 (11.0-15.0) % Plt Count 388 (150-400) 10^3/uL Add Manual Diff Yes Neutrophils % (Manual) 86 H (35-85) % Lymphocytes % (Manual) 5 L (21-55) % Monocytes % (Manual) 8 (2-12) % Eosinophils % (Manual) 1 (0-5) % Absolute Neutrophils 19.09 H (1.80-7.00) 10^3/uL Lymphocytes # (Manual) 1.11 (1.00-4.80) 10^3/uL Monocytes # (Manual) 1.78 H (0.00-0.80) 10^3/uL Eosinophils # (Manual) 0.22 (0.00-0.45) 10^3/uL ABG pH (7.35-7.45) ABG pCO2 (35-45) mm/Hg0 ABG pO2 (80-100) mm/Hg ABG HCO3 (22.0-26.0) mm/L ABG O2 Saturation (95-98) % ABG Base Excess (-2.0-3.0) O2 Delivery Device Oxygen Flow Rate Sodium 139 (136-145) mEq/L Potassium 4.0 D (3.5-5.0) mEq/L Chloride 104 (98-106) mEq/L Carbon Dioxide 27 (21-32) mmol/L BUN 16 D (7-18) mg/dL Creatinine 0.4 L (0.7-1.3) mg/dL Est Cr Clr Drug Dosing 149.18 mL/min Estimated GFR (MDRD) > 60 (>=60) mL/min Glucose 131 H (75-99) mg/dL Lactic Acid 0.5 (0.4-2.0) mmol/L Calcium 8.3 L (8.4-10.1) mg/dL Total Bilirubin 0.6 (0.0-1.0) mg/dL AST 9 L (15-37) U/L ALT 19 (12-78) U/L Alkaline Phosphatase 79 (46-116) U/L C-Reactive Protein 7.6 H (0.2-0.8) mg/dL Npl-Y-Qqraimmreyz Pept 77 (0-1000) pg/nL Total Protein 7.4 (6.4-8.2) g/dL Albumin 3.1 L (3.4-5.0) g/dL Urine Color (YELLOW) Urine Appearance (CLEAR) Urine pH (4.5-8.0) Ur Specific [place] (1.003-1.020) Urine Protein (NEGATIVE) mg/dL Urine Glucose (UA) (NEGATIVE) mg/dL Urine Ketones (NEGATIVE) mg/dL Urine Occult Blood (NEGATIVE) Urine Nitrite (NEGATIVE) Urine Bilirubin (NEGATIVE) Urine Urobilinogen (0.2-1.0) EU/dL Ur Leukocyte Esterase (NEGATIVE) Urine RBC (0-5) /HPF Urine WBC (0-5) /HPF Ur Squamous Epith Cells (NOT SEEN) /HPF Amorphous Sediment (NOT SEEN) /HPF Urine Mucus (NOT SEEN) /HPF 12/28/16 12/28/16 Range/Units 06:02 07:30 WBC (5.0-10.0) 10^3/uL RBC (4.50-6.00) 10^6/uL Hgb (14.0-18.0) g/dL Hct (40.0-54.0) % MCV (82.0-94.0) fL MCH (27.0-32.0) pg MCHC (33.0-38.0) g/dL RDW Coeff of Constantino (11.0-15.0) % Plt Count (150-400) 10^3/uL Add Manual Diff Neutrophils % (Manual) (35-85) % Lymphocytes % (Manual) (21-55) % Monocytes % (Manual) (2-12) % Eosinophils % (Manual) (0-5) % Absolute Neutrophils (1.80-7.00) 10^3/uL Lymphocytes # (Manual) (1.00-4.80) 10^3/uL Monocytes # (Manual) (0.00-0.80) 10^3/uL Eosinophils # (Manual) (0.00-0.45) 10^3/uL ABG pH 7.23 L (7.35-7.45) ABG pCO2 65 H (35-45) mm/Hg0 ABG pO2 63 L (80-100) mm/Hg ABG HCO3 27.4 H (22.0-26.0) mm/L ABG O2 Saturation 86 L (95-98) % ABG Base Excess 0.0 (-2.0-3.0) O2 Delivery Device Room air Oxygen Flow Rate 15 Sodium (136-145) mEq/L Potassium (3.5-5.0) mEq/L Chloride (98-106) mEq/L Carbon Dioxide (21-32) mmol/L BUN (7-18) mg/dL Creatinine (0.7-1.3) mg/dL Est Cr Clr Drug Dosing mL/min Estimated GFR (MDRD) (>=60) mL/min Glucose (75-99) mg/dL Lactic Acid (0.4-2.0) mmol/L Calcium (8.4-10.1) mg/dL Total Bilirubin (0.0-1.0) mg/dL AST (15-37) U/L ALT (12-78) U/L Alkaline Phosphatase (46-116) U/L C-Reactive Protein (0.2-0.8) mg/dL Mlc-F-Okahn[place]qmzu Pept (0-1000) pg/nL Total Protein (6.4-8.2) g/dL Albumin (3.4-5.0) g/dL Urine Color Yellow (YELLOW) Urine Appearance Clear (CLEAR) Urine pH 5.5 (4.5-8.0) Ur Specific [place] 1.021 H (1.003-1.020) Urine Protein Negative (NEGATIVE) mg/dL Urine Glucose (UA) Negative (NEGATIVE) mg/dL Urine Ketones Trace H (NEGATIVE) mg/dL Urine Occult Blood Negative (NEGATIVE) Urine Nitrite Negative (NEGATIVE) Urine Bilirubin Negative (NEGATIVE) Urine Urobilinogen 0.2 (0.2-1.0) EU/dL Ur Leukocyte Esterase Negative (NEGATIVE) Urine RBC 0-5 (0-5) /HPF Urine WBC 0-5 (0-5) /HPF Ur Squamous Epith Cells Occasional H (NOT SEEN) /HPF Amorphous Sediment Occasional H (NOT SEEN) /HPF Urine Mucus Few H (NOT SEEN) /HPF Meds: Medications Generic Name Dose Route Start Last Admin Trade Name Freq PRN Reason Stop Dose Admin Piperacillin Sod/Tazobactam 100 mls @ 200 mls/hr 12/28/16 07:15 12/28/16 07: 28 Sod 4.5 gm/ Sodium Chloride IV 200 mls/hr Q6H THAI Administration Vancomycin HCl 1 gm/ Sodium 250 mls @ 167 mls/hr 12/28/16 07:12 12/28/16 07: 29 Chloride IV 12/28/16 08:41 167 mls/hr ONETIME ONE Administration Discontinued Medications Generic Name Dose Route Start Last Admin Trade Name Chaparro PRN Reason Stop Dose Admin Albuterol/Ipratropium 3 ml 12/28/16 05:09 12/28/16 05:15 Duoneb 3.0-0.5 Mg/3 Ml NEB 12/28/16 05:10 3 ml ONETIME ONE Administration Albuterol/Ipratropium 3 ml 12/28/16 05:53 12/28/16 05:58 Duoneb 3.0-0.5 Mg/3 Ml NEB 12/28/16 05:54 3 ml ONETIME ONE Administration Albuterol/Ipratropium 3 ml 12/28/16 05:54 12/28/16 06:07 Duoneb 3.0-0.5 Mg/3 Ml NEB 12/28/16 05:55 3 ml ONETIME ONE Administration Sodium Chloride 1,000 mls @ 1,000 mls/hr 12/28/16 05:55 12/28/16 06:10 Normal Saline IV 12/28/16 06:54 1,000 mls/hr .BOLUS ONE Administration Methylprednisolone Sodium Succinate 125 mg 12/28/16 05:54 12/28/16 06:00 Solu-Medrol IVPUSH 12/28/16 05:55 125 mg NOW STA Administration - Radiology Interpretation Free Text/Narrative:: CXR: RLL infiltrate. no pulmonary edema. no cardiomegaly. 2nd CXR: ET tube placement very minimal right mainstem. I will pull back 1cm. - Re-Assessments/Exams Free Text/Narrative Re-Assessment/Exam: 12/28/16 06:30 This patient came in with eye opening and eye following at his baseline. Respirations were 32 and oxygen got up to 94% on 15L NRB. Then, the patient began to become more labored in his breathing. He was using accessory muscles, retracting, labored. He was no longer eye opening or eye following. He was no longer arousable. His oxygen saturation was now 89% on duoneb, and then 87% on NRB. I involved [facility] for second opinion. Physician also agrees that the patient should be intubated. I discussed this with sister at bedside. She says the patient is a full code and should be intubated. I then proceeded with intubation. Please see procedure note. Glidescope was used. RT used ambu to ventilate. Ignacio was placed, abxs given, NS bolus complete, CXR confirmed placement of ET tube as well as breath sounds. Patient is flyng fixed wing. Patient was given Rocuronium 200mg IV. Pharmacy has been notified. Departure - Departure Time of Disposition: 07:17 Disposition: DC/Tfer to [facility] 02 Condition: serious Clinical Impression: Respiratory distress Pneumonia Qualifiers: Pneumonia type: due to unspecified organism Laterality: right Lung location: lower lobe of lung Qualified Code(s): J18.1 - Lobar pneumonia, unspecified organism Sepsis Qualifiers: Sepsis type: sepsis due to unspecified organism Qualified Code(s): A41.9 - Sepsis, unspecified organism Referrals: Rory Mishra MD [Primary Care Provider] - Forms: ED Department Discharge - My Orders Last 24 Hours: My Active Orders 12/28/16 04:49 Oxygen Therapy, ED [RC] ASDIRECTED 12/28/16 05:10 RT Aerosol Therapy [RC] ASDIRECTED 12/28/16 05:22 Chest 1V Frontal [CR] Stat Blood Culture x2 Reflex Set [OM.PC] Stat 12/28/16 05:30 CULTURE BLOOD [BC] Stat CULTURE BLOOD [BC] Stat 12/28/16 05:54 RT Aerosol Therapy [RC] ASDIRECTED RT Aerosol Therapy [RC] ASDIRECTED 12/28/16 07:12 Vancomycin 1 gm Sodium Chloride 0.9% [Normal Saline] 250 ml IV ONETIME 12/28/16 07:13 Urinary Catheter Assessment [RC] ASDIRECTED 12/28/16 07:15 Ignacio Catheter Insertion [Insert Urinary Catheter] [OM.PC] Q24H Ignacio Catheter Insertion [Insert Urinary Catheter] [OM.PC] Q24H Urinary Catheter Assessment [RC] ASDIRECTED Piperacillin/Tazobactam [Zosyn] 4.5 gm Sodium Chloride 0.9% [Normal Saline] 100 ml IV Q6H 12/28/16 07:16 Chest 1V Frontal [CR] Stat - Assessment/Plan Last 24 Hours: My Active Orders 12/28/16 04:49 Oxygen Therapy, ED [RC] ASDIRECTED 12/28/16 05:10 RT Aerosol Therapy [RC] ASDIRECTED 12/28/16 05:22 Chest 1V Frontal [CR] Stat Blood Culture x2 Reflex Set [OM.PC] Stat 12/28/16 05:30 CULTURE BLOOD [BC] Stat CULTURE BLOOD [BC] Stat 12/28/16 05:54 RT Aerosol Therapy [RC] ASDIRECTED RT Aerosol Therapy [RC] ASDIRECTED 12/28/16 07:12 Vancomycin 1 gm Sodium Chloride 0.9% [Normal Saline] 250 ml IV ONETIME 12/28/16 07:13 Urinary Catheter Assessment [RC] ASDIRECTED 12/28/16 07:15 Ignacio Catheter Insertion [Insert Urinary Catheter] [OM.PC] Q24H Ignacio Catheter Insertion [Insert Urinary Catheter] [OM.PC] Q24H Urinary Catheter Assessment [RC] ASDIRECTED Piperacillin/Tazobactam [Zosyn] 4.5 gm Sodium Chloride 0.9% [Normal Saline] 100 ml IV Q6H 12/28/16 07:16 Chest 1V Frontal [CR] Stat Plan: PLEASE SEE RN NOTE FOR PFSH. I am transferring this patent to ICU. I called and spoke to Dr. Kaufman in the ICU, he will accept the patient. The risks of transfer are plane crash, mvc, cardiac arrest, , worsening of condition. The benefits of transfer are higher level of care, ICU, ventilator, pulmonary consult, critical care monitoring, and speciality interventions. The risks of staying in [place] are lack of specialized care, treatment, ventilator, worsening of condition, . The benefits of no transfer is close to home.
[2016-12-28] MEDS ORDERED: methylPREDNISolone Sodium Succinate 125 MG/2 ML SDV IVPUSH STA (05:54)
[2016-12-28] MEDS ORDERED: Sodium Chloride 0.9% 1,000 ML IV ONE (05:55)
[2016-12-28 06:09] LABS: CHLORIDE,CL 104 mEq/L (98-106); SODIUM,NA 139 mEq/L (136-145)
[2016-12-28 06:35] LABS: BICARBONATE,ARTERIAL 27.4 mm/L (22.0-26.0); O2 DELIVERY DEVICE ROOM AIR; O2 SATURATION ARTERIAL 86 % (95-98); PCO2 ARTERIAL 65 mm/Hg0 (35-45); PO2 ARTERIAL 63 mm/Hg (80-100)
[2016-12-28 06:38] LABS: O2 FLOW RATE 15
[2016-12-28] MEDS ORDERED: Piperacillin/Tazobactam 4.5 GM in Sodium Chloride 0.9% 100 ML IV SCH (07:15)
[2016-12-28 09:37] VITALS: BP 118/66
== END 2016-12-28 08:05 ==
LOC: CC.ED 04:49
DX: J18.1 Lobar pneumonia, unspecified organism (principal); A41.9 Sepsis, unspecified organism; Z79.899 Other long term (current) drug therapy
CPT/HCPCS: 31500; 36415; 36600; 51702; 71010; 80053; 81001; 82803; 83605; 83880; 85025; 86140; 87040; 87804; 93005; 96365; 96367; 96375; 99285; J2543; J2930; J3370; J7030; J7050; 29200; 93010

== ENCOUNTER 2017-01-25 08:13 | Emergency (ER) | payer OTHER, MEDICARE, BC ==
[2017-01-25 08:45] VITALS: BP 117/70
[2017-01-25 09:09] LABS: CHLORIDE,CL 102 mEq/L (98-106); SODIUM,NA 141 mEq/L (136-145)
--- NOTE | 2017-01-25 09:11 | EDM.PDOC ---
[id number]: SOB Time Seen by Provider: 01/25/17 08:45 Source of Information: Reports: Family, residential records History Limitations: Reports: Language barrier - History of Present Illness INITIAL COMMENTS - FREE TEXT/NARRATIVE: Patient presents to ER with complaints of increased shortness of breath. Nursing staff at [facility] had noted tachypnea, hypoxia. States his oxygen level was in the low 80s on room air. Presented on a NRB mask with high sats so was able to be weaned down to a regular mask at 6 liters and his sats are 93% per nurse. Family at bedside relates that he was transferred one month ago to [place] for pneumonia, respiratory distress. Was intubated and hospitalized there for 3 weeks and returned back to the [facility] a week ago. Family was there on Tuesday and he was doing well. Has been having some issues with hypoxia since getting discharged from the hospital with transfers and such but today status worsened. Timing/Duration: Reports: Hour(s): Severity: moderate Location, General: Reports: chest Associated Symptoms (General): Reports: cough, fever/chills, shortness of breath - Related Data Allergies/ADRs: Allergies Allergy/AdvReac Type Severity Reaction Status Date / Time No Known Allergies Allergy Verified 01/25/17 08:51 Home Meds: Home Meds Baclofen 15 mg PEGTUBE TID 12/17/16 [History] Bisacodyl [Dulcolax] 10 mg RECTAL DAILY PRN 12/17/16 [History] Diazepam [Valium] 2 mg PEGTUBE DAILY 12/17/16 [History] Diazepam [Valium] 10 mg PEGTUBE BEDTIME 12/17/16 [History] Levothyroxine [Synthroid] 50 mcg PEGTUBE DAILY 12/17/16 [History] Mineral Oil/Petrolatum,White [Lubrifresh Pm Eye Ointment] 1 applic EYEBOTH DAILY 12/17/16 [History] Sennosides/Docusate Sodium [Senna-Docusate Sodium] 1 each PEGTUBE DAILY [History] Potassium Chloride 22.5 ml PO DAILY 12/28/16 [History] Acetaminophen 10 ml PEGTUBE BID 01/25/17 [History] Levofloxacin [Levaquin] 500 mg PO DAILY #10 tablet 01/25/17 [Rx] Past Medical History Other HEENT History: eye senstivity. Other Gastrointestinal History: abdomen distended and tympanic. Other Genitourinary History: Patient incontinent of urine. Other Musculoskeletal History: Patient is quadraplegic. Social & Family History - Tobacco Use Smoking Status *Q: Unknown Ever Smoked - Recreational Drug Use Recreational Drug Use: No ED ROS GENERAL - Review of Systems Review Of Systems: See Below (per family and alf staff) Constitutional: Reports: fever Respiratory: Reports: Shortness of Breath, Cough, Other (chest congestion) ED EXAM, GENERAL - Physical Exam Exam: See Below Exam Limited By: Language barrier General Appearance: alert, WD/WN, no apparent distress Ears: normal external exam, normal TMs Nose: normal inspection, no blood Throat/Mouth: Normal oropharynx Head: normocephalic Respiratory/Chest: decreased breath sounds, rhonchi Cardiovascular: regular rate, rhythm GI/Abdominal: normal bowel sounds, soft, non tender Neurological: other (drowsy; patient does maintain eye contact, not verbal. usual neurological status from previous evaluations.) Skin Exam: Other (flushed) Course - Vital Signs Last Recorded V/S: Last Vital Signs Temp 99.5 F 01/25/17 09:56 Pulse 100 01/25/17 09:56 Resp 38 H 01/25/17 08:42 BP 117/70 01/25/17 08:42 Pulse Ox 96 01/25/17 09:56 - Orders/Labs/Meds Orders: Active Orders 24 hr Category Date Time Status Chest 1V Frontal [CR] Stat Exams 01/25/17 08:32 Taken Labs: Laboratory Tests 01/25/17 01/25/17 01/25/17 Range/Units 08:32 08:32 08:32 WBC 25.1 H* (5.0-10.0) 10^3/uL RBC 4.57 (4.50-6.00) 10^6/uL Hgb 14.2 (14.0-18.0) g/dL Hct 44.5 (40.0-54.0) % MCV 97.4 H (82.0-94.0) fL MCH 31.1 (27.0-32.0) pg MCHC 31.9 L (33.0-38.0) g/dL RDW Coeff of Constantino 13.9 (11.0-15.0) % Plt Count 344 (150-400) 10^3/uL Add Manual Diff Yes Neutrophils % (Manual) 79 (35-85) % Band Neutrophils % 5 (0-5) % Lymphocytes % (Manual) 8 L (21-55) % Monocytes % (Manual) 6 (2-12) % Eosinophils % (Manual) 2 (0-5) % Absolute Neutrophils 21.08 H (1.80-7.00) 10^3/uL Lymphocytes # (Manual) 2.01 (1.00-4.80) 10^3/uL Monocytes # (Manual) 1.51 H (0.00-0.80) 10^3/uL Eosinophils # (Manual) 0.50 H (0.00-0.45) 10^3/uL Toxic Granulation 1+ slight H (NOT SEEN) D-Dimer, Quantitative 0.97 H (0.00-0.50) Sodium 141 (136-145) mEq/L Potassium 4.0 (3.5-5.0) mEq/L Chloride 102 (98-106) mEq/L Carbon Dioxide 29 (21-32) mmol/L BUN 28 H D (7-18) mg/dL Creatinine 0.5 L (0.7-1.3) mg/dL Est Cr Clr Drug Dosing 149.18 mL/min Estimated GFR (MDRD) > 60 (>=60) mL/min Glucose 132 H (75-99) mg/dL Calcium 8.7 (8.4-10.1) mg/dL Total Bilirubin 0.3 (0.0-1.0) mg/dL AST 21 (15-37) U/L ALT 30 (12-78) U/L Alkaline Phosphatase 103 (46-116) U/L C-Reactive Protein 0.9 H (0.2-0.8) mg/dL Total Protein 7.4 (6.4-8.2) g/dL Albumin 3.3 L (3.4-5.0) g/dL Urine Color (YELLOW) Urine Appearance (CLEAR) Urine pH (4.5-8.0) Ur Specific Diana (1.003-1.020) Urine Protein (NEGATIVE) mg/dL Urine Glucose (UA) (NEGATIVE) mg/dL Urine Ketones (NEGATIVE) mg/dL Urine Occult Blood (NEGATIVE) Urine Nitrite (NEGATIVE) Urine Bilirubin (NEGATIVE) Urine Urobilinogen (0.2-1.0) EU/dL Ur Leukocyte Esterase (NEGATIVE) Urine RBC (0-5) /HPF Urine WBC (0-5) /HPF Ur Epithelial Cells (NOT SEEN) /HPF Urine Bacteria (NOT SEEN) /HPF Urine Mucus (NOT SEEN) /HPF 01/25/17 Range/Units 09:11 WBC (5.0-10.0) 10^3/uL RBC (4.50-6.00) 10^6/uL Hgb (14.0-18.0) g/dL Hct (40.0-54.0) % MCV (82.0-94.0) fL MCH (27.0-32.0) pg MCHC (33.0-38.0) g/dL RDW Coeff of Constantino (11.0-15.0) % Plt Count (150-400) 10^3/uL Add Manual Diff Neutrophils % (Manual) (35-85) % Band Neutrophils % (0-5) % Lymphocytes % (Manual) (21-55) % Monocytes % (Manual) (2-12) % Eosinophils % (Manual) (0-5) % Absolute Neutrophils (1.80-7.00) 10^3/uL Lymphocytes # (Manual) (1.00-4.80) 10^3/uL Monocytes # (Manual) (0.00-0.80) 10^3/uL Eosinophils # (Manual) (0.00-0.45) 10^3/uL Toxic Granulation (NOT SEEN) D-Dimer, Quantitative (0.00-0.50) Sodium (136-145) mEq/L Potassium (3.5-5.0) mEq/L Chloride (98-106) mEq/L Carbon Dioxide (21-32) mmol/L BUN (7-18) mg/dL Creatinine (0.7-1.3) mg/dL Est Cr Clr Drug Dosing mL/min Estimated GFR (MDRD) (>=60) mL/min Glucose (75-99) mg/dL Calcium (8.4-10.1) mg/dL Total Bilirubin (0.0-1.0) mg/dL AST (15-37) U/L ALT (12-78) U/L Alkaline Phosphatase (46-116) U/L C-Reactive Protein (0.2-0.8) mg/dL Total Protein (6.4-8.2) g/dL Albumin (3.4-5.0) g/dL Urine Color Yellow (YELLOW) Urine Appearance Clear (CLEAR) Urine pH 5.0 (4.5-8.0) Ur Specific Diana 1.022 H (1.003-1.020) Urine Protein Negative (NEGATIVE) mg/dL Urine Glucose (UA) Negative (NEGATIVE) mg/dL Urine Ketones Negative (NEGATIVE) mg/dL Urine Occult Blood Small H (NEGATIVE) Urine Nitrite Negative (NEGATIVE) Urine Bilirubin Negative (NEGATIVE) Urine Urobilinogen 0.2 (0.2-1.0) EU/dL Ur Leukocyte Esterase Negative (NEGATIVE) Urine RBC 0-5 (0-5) /HPF Urine WBC Not seen (0-5) /HPF Ur Epithelial Cells Occasional H (NOT SEEN) /HPF Urine Bacteria Occasional H (NOT SEEN) /HPF Urine Mucus Occasional H (NOT SEEN) /HPF Meds: Medications Discontinued Medications Generic Name Dose Route Start Last Admin Trade Name Freq PRN Reason Stop Dose Admin Methylprednisolone Acetate 160 mg 01/25/17 10:51 01/25/17 11:04 Depo-Medrol IM 01/25/17 10:52 160 mg ONETIME ONE Administration - Re-Assessments/Exams Free Text/Narrative Re-Assessment/Exam: 01/25/17 1000 labs, xray reviewed with family. Dr. Mishra in with sister to discuss status in regards to all recent illnesses and code status. Sister states that daughter has co-guardianship with the patient and has to agree on the overall care. Dr. Mishra is to try to call daughter. 01/25/17 11:04 Attempting to get patient on a nasal cannula as he seems to dislike the mask and becomes more restless, constantly moving mouth while with the cannula, he is resting quietly. Oxygen sats on 90% on 6 liters. 01/25/17 1200- Dr. Mishra did contact the daughter about plan and code status. Will transfer back to the alf and start Levaquin. Depo Medrol given here. Continue oxygen to keep sats above 90%. Departure - Departure Time of Disposition: 12:08 Disposition: DC/[facility] Condition: poor Clinical Impression: Aspiration pneumonia Qualifiers: Laterality: left Lung location: lower lobe of lung Prescriptions: Levofloxacin [Levaquin] 500 mg PO DAILY #10 tablet Referrals: Rory Mishra MD [Primary Care Provider] - Forms: ED Department Discharge Additional Instructions: 1. Keep head of bed elevated 2. Levaquin 500 mg daily for 10 days per g-tube 3. Oxygen per nasal cannula or to keep sats greater than 90% 4. Follow up or contact Dr. Mishra with any questions - My Orders Last 24 Hours: My Active Orders 01/25/17 08:32 Chest 1V Frontal [CR] Stat - Assessment/Plan Last 24 Hours: My Active Orders 01/25/17 08:32 Chest 1V Frontal [CR] Stat
[2017-01-25] MEDS ORDERED: methylPREDNISolone Acetate 80 MG/ML SDV IM ONE (10:51)
== END 2017-01-25 13:30 | disposition home or self-care (01) ==
LOC: CC.ED 08:13
DX: J69.0 Pneumonitis due to inhalation of food and vomit (principal); Z79.899 Other long term (current) drug therapy
CPT/HCPCS: 36415; 71010; 80053; 81001; 85025; 85379; 86140; 96372; 99285; J1040